=== PATIENT | male | born 1970 | race Caucasian/White ===

== ENCOUNTER 2020-12-14 11:33 | Emergency (ER) | payer BC ==
[2020-12-14 12:20] LABS: HEMOGLOBIN 16.1 gm/dl (14.0-17.5); RED BLOOD COUNT 5.02 M/UL (4.20-5.50); WHITE BLOOD COUNT 10.9 K/UL (4.5-11.0)
[2020-12-14 12:35] LABS: BUN/CREATININE RATIO 21 (0-10)
[2020-12-14] MEDS ORDERED: ACID-PEP20 MG PO (18:22)
[2020-12-14] MEDS ORDERED: ZOFRAN ODT 4 MG4 MG SL (18:22)
== END 2020-12-14 18:34 | disposition home or self-care (01) ==
LOC: ER1 11:33
PROVIDERS: Student in an Organized Health Care Education/Training Program
DX: R10.11 Right upper quadrant pain (principal); R11.2 Nausea with vomiting, unspecified
CPT/HCPCS: 36415; 71045; 80053; 82550; 82553; 83690; 83874; 84484; 85025; 93005; 96374; 96375; 99284; J2270; J2405; Q9967